=== PATIENT | male | born 1970 | race Caucasian/White ===

== ENCOUNTER 2023-06-17 07:53 | Outpatient (CLI) | payer OTHER, SELFPAY ==
--- NOTE | ~2023-06-17 | MR_ITS ---
EXAMINATION: MR lower leg LT wo/w con DATE: 06/17/2023 09:09 INDICATION: Muscle cramps and palpable mass at the left calf TECHNIQUE: Magnetic resonance imaging (MRI) of the left calf was performed without and with 20 mL Mul tihance intravenous contrast. Sequences included axial T1-weighted FSE and fluid sensitive FSE STIR. Precontrast axial T1-weighted FS FSE and post contrast axial and coronal T1-weighted FS FSE were also obtained. The contralateral right calf is included on the coronal images. COMPARISON: None. FINDINGS: There is metallic magnetic field artifact associated with bilateral knee arthroplasties. Bone marrow signal is otherwise normal throughout with no fracture, reactive edema or pathologic marrow replacing process. The mesial edema in the posterior compartment with larger heterogeneously T1 and T2 hyperin tense signal most consistent with a hematoma located along the fascial plane between the soleus muscl e and the more superficial medial head of the gastrocnemius muscle. This measures approximately 16 cm in craniocaudal length, 14 cm in length along the axial plane and up to 1.4 cm in maximal thickness. Muscle signal is unremarkable. No asymmetric muscular atrophy. No abnormally enhancing lesions ident ified. IMPRESSION: 1. Moderate grade strain/partial tear along the myotendinous junction of the proximal Achilles tendon between the medial head of the gastrocnemius and the soleus muscles. Reviewed, dictated and finalized at location A. [employer]PER[employer] IMPRESSION: 1. Moderate grade strain/partial tear along the myotendinous junction of the pr oximal Achilles tendon between the medial head of the gastrocnemius and the gildardo eus muscles.
== END 2023-06-17 07:54 | disposition home or self-care (01) ==
PROVIDERS: PCP Family Medicine; Visit Provider Orthopaedic Surgery
DX: S86.012A Strain of left Achilles tendon, initial encounter (principal); X58.XXXA Exposure to other specified factors, initial encounter
CPT/HCPCS: 73720; A9577